=== PATIENT | female | born 1985 | race Caucasian/White ===

== ENCOUNTER → 2021-01-12 09:32 | Outpatient (CLI) | payer OTHER, SELFPAY ==
[2021-01-12 10:13] LABS: Add Manual Diff / Slide Review NO; Basophils Absolute Auto 0 /uL (0-100); Basophils Percent Auto 0.6 % (0-2); Eosinophils Absolute Auto 200 /uL (0-450); Eosinophils Percent Auto 2.9 % (2-4); Hemoglobin 14.4 g/dL (12.0-16.0); Lymphocytes Absolute Auto 1300 /uL (1100-4500); Mean Corpuscular HGB Conc 33.4 % (30-36); Mean Corpuscular Hemoglobin 30.8 PG (26-34); Mean Corpuscular Volume 92.2 fL (80-100); Monocytes Absolute Auto 400 /uL (0-900); Monocytes Percent Auto 7.2 % (3-14); Neutrophils Absolute Auto 4100 /uL (1500-7000); Neutrophils Percent Auto 68.3 % (50-75); Platelet Count 230 X10^3/uL (150-400); Red Blood Cell Count 4.67 X10^6/uL (4.0-5.2); Red Cell Distribution Width 13.5 % (11.6-14.8)
[2021-01-12 11:11] LABS: Free T4, Direct Thyroxine 0.74 ng/dL (0.78-2.19)
[2021-01-12 11:25] LABS: Alanine Aminotransferase 14 IU/L (<35); Albumin 4.6 g/dL (3.5-5.0); Albumin Globulin Ratio 1.5 (1.0-2.8); Alkaline Phosphatase 57 U/L (38-126); Aspartate Aminotransferase 24 IU/L (14-36); BUN Creatinine Ratio 23.5 (6-22); Bilirubin Total 0.3 mg/dL (0.2-1.3); Blood Urea Nitrogen 12 mg/dL (7-17); Calcium 9.9 mg/dL (8.4-10.2); Carbon Dioxide 25 mmol/L (22-32); Chloride 104 mmol/L (98-107); Cholesterol 220 mg/dL (140-199); Estimated Glomerular Filt Rate > 60.0 mL/min (>60); Glucose 107 mg/dL (70-100); HDL Cholesterol 98 mg/dL (40-60); HEMOLYSIS < 15 (0-50); LDL Cholesterol Calculated 114 mg/dL (<100); Potassium 4.5 mmol/L (3.4-5.1); Sodium 137 mmol/L (137-145); Thyroid Stimulating Hormone 0.517 uIU/mL (0.47-4.68); Total Protein 7.6 g/dL (6.3-8.2); Triglycerides 39 mg/dL (35-150)
[2021-01-12 12:31] LABS: Folate 10.1 ng/mL (2.76-20.0); Vitamin B12 Reflex MMA if <400 390 pg/mL (239-931)
[2021-01-17 12:12] LABS: Methylmalonic Acid,Serum 159 nmol/L (0-378)
== END ==
PROVIDERS: PCP Nurse Practitioner Family; Referring Provider Nurse Practitioner Family; Visit Provider Nurse Practitioner Family
DX: Z00.00 Encounter for general adult medical examination without abnormal findings (principal); R19.4 Change in bowel habit; R53.83 Other fatigue; R63.4 Abnormal weight loss; Z13.6 Encounter for screening for cardiovascular disorders
CPT/HCPCS: 36415; 80053; 80061; 82607; 82746; 83921; 84439; 84443; 85025

== ENCOUNTER → 2021-01-31 10:53 | Outpatient (CLI) | payer OTHER, SELFPAY ==
[2021-01-31 13:28] LABS: Free T4, Direct Thyroxine 1.03 ng/dL (0.78-2.19)
[2021-01-31 13:41] LABS: Thyroid Stimulating Hormone 0.466 uIU/mL (0.47-4.68)
[2021-02-01 18:29] LABS: Deamidated Gliadin Ab IgA 4 units (0-19); Deamidated Gliadin Ab IgG 2 units (0-19); Immunoglobulin A,Qn 258 mg/dL (87-352); t-Transglutaminase IgA <2 U/mL (0-3)
== END ==
PROVIDERS: PCP Nurse Practitioner Family; Referring Provider Nurse Practitioner Family; Visit Provider Nurse Practitioner Family
DX: R79.89 Other specified abnormal findings of blood chemistry (principal); R19.4 Change in bowel habit; R53.83 Other fatigue; R63.4 Abnormal weight loss
CPT/HCPCS: 36415; 82784; 83516; 84439; 84443

== ENCOUNTER → 2021-02-07 10:56 | Outpatient (CLI) | payer OTHER, SELFPAY | PROVIDERS: PCP Nurse Practitioner Family; Referring Provider Nurse Practitioner Family; Visit Provider Nurse Practitioner Family | DX: R19.4 Change in bowel habit (principal); R63.4 Abnormal weight loss | CPT/HCPCS: 87045; 87177 ==

== ENCOUNTER 2021-02-10 06:33 | Emergency (ER) | payer OTHER, SELFPAY ==
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
[2021-02-10 07:05] VITALS: BP 119/75; PULSE 56; RESP 18; TEMP 36.8; O2SAT 99
[2021-02-10 07:40] VITALS: BP 121/76; PULSE 70; RESP 16; O2SAT 99
[2021-02-10] MEDS: KETOROLAC 30 MG/ML VIAL IM (07:41)
== END 2021-02-10 07:58 | disposition home or self-care (01) ==
PROVIDERS: Emergency Provider Emergency Medicine; PCP Nurse Practitioner Family
DX: M62.830 Muscle spasm of back (principal)
CPT/HCPCS: 71046; 96372; 99283; J1885

== ENCOUNTER → 2021-02-15 09:50 | Outpatient (CLI) | payer OTHER, SELFPAY ==
[2021-02-15 11:06] LABS: COVID19 -Nasal RAPID Negative (Negative)
== END ==
PROVIDERS: PCP Nurse Practitioner Family; Visit Provider Specialist
DX: Z20.822 Contact with and (suspected) exposure to COVID-19 (principal)
CPT/HCPCS: 87635; C9803

== ENCOUNTER 2021-02-16 10:27 | Day surgery (SDC) | payer OTHER, SELFPAY ==
[2021-02-16] VITALS (8 sets, daily range): BP systolic 99–116; BP diastolic 60–81; PULSE 55–75; RESP 12–20; TEMP 36.4–37.2; O2SAT 99–100; BMI 22.3
--- NOTE | 2021-02-16 | PATH_ITS ---
[facility] Accession Number: [id number] . 01 Material submitted: . PART A: cecum - CECUM POLYP PART B: ileum - TERMINAL ILEUM BIOPSY PART C: colon - RANDOM COLON BIOPSIES . 02 Diagnosis: A. Cecum, Polyp, Biopsy: Tubular adenoma. . B. Terminal Ileum Biopsy: Small bowel mucosa with no diagnostic abnormality. Negative for active inflammation, dysplasia and malignancy. . C. Random Colon, Biopsies: Colonic mucosa with no diagnostic abnormality. Negative for active, chronic, and microscopic colitis. Negative for dysplasia and malignancy. . [facility] 02/21/2021 0929 Local . 02 Electronically signed: . Fara Hartley MD, Pathologist NPI- [id number] . 01 Gross description: . Part A: CECUM POLYP: Received in formalin are multiple fragment(s) of chaney, soft tissue measuring 1.2 x 0.3 x 0.1 cm in aggregate submitted entirely in 1 cassette(s) Part B: TERMINAL ILEUM BIOPSY: Received in formalin are 2 fragment(s) of chaney, soft tissue measuring 0.5 x 0.4 x 0.4 cm to 0.4 x 0.2 x 0.2 cm submitted entirely in 1 cassette(s) Part C: RANDOM COLON BIOPSIES: Received in formalin are multiple fragment(s) of chaney, soft tissue measuring 2.2 x 0.6 x 0.2 cm in aggregate submitted entirely in 1 cassette(s) /RENA 02/17/2021 0419 Local . 02 Pathologist provided ICD-10: D12.0 . 02 CPT . 208100, 229416, 342425 Performed at: 01 [facility] [address] [place] [address] [address], [place], [place] [id number] MD Franklyn Coker MD Phone: [phone] Performed at: 02 [facility] [address] [place] [id number] MD Fara Hartley MD Phone: [phone]
[2021-02-16] MEDS: LACTATED RINGERS 1,000 ML 200 ML IV (10:50)
--- NOTE | 2021-02-16 12:24 | PM.PREOP ---
Pre-operative Note COVID-19 COVID-19 status: Negative Result date/Date tested (Pos, Neg/Pending): 02/15/21 Interval Note History & Physical reviewed/Exam performed by Physician: Yes Changes to H&P: No ASA Class (for procedural sedation): I
[2021-02-16] MEDS: MIDAZOLAM 5 MG/5 ML VIAL IV (12:32)
[2021-02-16] MEDS: fentaNYL 250 MCG/5 ML INJ IV (12:32)
--- NOTE | 2021-02-16 12:57 | PM.OP.ENDO ---
Operative Date/Time/Diagnoses Date of procedure: 02/16/21 Time of procedure: 12:57 Pre-op diagnosis: Chronic diarrhea Post-op diagnosis: same (No obvious source seen.) Procedure & Clinicians Study performed: Colonoscopy with cold biopsy. Collection of stool specimen. Same procedure as scheduled: Yes Indications: Try to determine cause of chronic diarrhea Surgeon: Napoleon Randle Procedure Notes SCOAP/Timeout: Performed Procedure in detail: The patient was placed in the left lateral decubitus position and underwent IV sedation directed by the surgeon consisting of fentanyl and Versed. Digital exam was unremarkable except for slight decrease in sphincter tone.. The scope was inserted and advanced through the rectum into the sigmoid, descending, transverse, and ascending colon. No lesions were seen.. The cecum was reached identified by the ileocecal valve and the appendiceal opening. There was a small polyp in the cecum which I removed with cold biopsy forceps. The ileocecal valve was successfully cannulated. The terminal ileum was normal in appearance. Biopsies were taken randomly at the terminal ileum. The scope was gradually brought out. Random colon biopsies were taken. The mucosa of over looked entirely normal. No other Polyps were found. The scope ultimately was retroflexed in the rectum. The appearance was normal. The scope was removed and the patient tolerated the procedure well. The prep was very good. There was very little stool in the colon therefore I submitted specimens for GI panel at for ova and parasite. Scope withdrawal time: 8 minutes Sedation minutes: 20 Findings: polyp (Cecal) Specimen(s): other (Random colon biopsies. Terminal ileum biopsies. Polyp in the cecum.) Impression: Except for the cecal polyp your colon and the end of your small intestine looked entirely normal. I took biopsies to make sure there is nothing present that my I could not see. Post-procedure Plan for aftercare: I will follow-up by phone Disposition: PACU
[2021-02-16 14:42] LABS: Adenovirus F 40/41 Not Detected (Not Detect); Astrovirus Not Detected (Not Detect); Campylobacter Not Detected (Not Detect); Clostridium difficile toxin AB Not Detected (Not Detect); Cryptosporidium Not Detected (Not Detect); Cyclospora cayetanensis Not Detected (Not Detect); Entamoeba histolytica Not Detected (Not Detect); Enteroaggregative E.coli Not Detected (Not Detect); Enteropathogenic E.coli Not Detected (Not Detect); Enterotoxigenic E.coli It/st Not Detected (Not Detect); Giardia lamblia Not Detected (Not Detect); Norovirus GI/GII Not Detected (Not Detect); Plesiomonsa shigelloides Not Detected (Not Detect); Rotavirus A Not Detected (Not Detect); Salmonella Not Detected (Not Detect); Sapovirus Not Detected (Not Detect); Shiga-like toxin-prod E.coli Not Detected (Not Detect); Shigella/Enteroinvasive E.coli Not Detected (Not Detect); Vibrio Not Detected (Not Detect); Vibrio cholerae Not Detected (Not Detect); Yersinia enterocolitica Not Detected (Not Detect)
== END 2021-02-16 13:36 | disposition home or self-care (01) ==
PROVIDERS: PCP Nurse Practitioner Family; Referring Provider Specialist; Visit Provider Specialist
PROC: 0DJD8ZZ Inspection of Lower Intestinal Tract, Via Natural or Artificial Opening Endoscopic (ICD-10-PCS; CPT 45378; principal; 2021-02-16 11:30)
DX: K52.9 Noninfective gastroenteritis and colitis, unspecified (principal); D12.0 Benign neoplasm of cecum
CPT/HCPCS: 45380; 87177; 87507; 99152; J2250; J3010

== ENCOUNTER 2025-03-04 16:35 | Observation (INO) | payer OTHER, SELFPAY ==
[2025-03-04 17:09] VITALS: BP 161/73; PULSE 58; RESP 20; TEMP 36.4; O2SAT 100; BMI 23.8
[2025-03-04 17:44] LABS: Add Manual Diff / Slide Review NO; Hematocrit 43.3 % (36-46); Hemoglobin 14.9 g/dL (12.0-16.0); Lymphocytes Absolute Auto 700 /uL (1100-4500); Mean Corpuscular HGB Conc 34.4 % (30-36); Mean Corpuscular Hemoglobin 31.1 PG (26-34); Mean Corpuscular Volume 90.4 fL (80-100); Platelet Count 239 X10^3/uL (150-400)
--- NOTE | 2025-03-04 17:48 | DI.US.S_ITS ---
PROCEDURE: US ABDOMEN LIMITED INDICATIONS: Abdominal pain TECHNIQUE: Real-time focused scanning was performed of the abdomen, with image documentation. COMPARISON: None. FINDINGS: The liver is normal in size and demonstrates no suspicious lesions. Trace sludge can be seen within the gallbladder. No shadowing stones are seen. Along the posterior wall of the gallbladder, there is a polyp versus nonmobile sludge seen that measures up to 5 mm. No abnormal vascularity can be seen within this focus. The gallbladder wall is not thickened, measuring 3 mm or less. No specific pericholecystic fluid is seen. The sonographic Carreon sign is positive. There is no biliary dilatation, the common bile duct measures 6 mm. No significant pancreatic abnormality is seen on these images. IMPRESSION: Trace sludge seen within the gallbladder. There is an additional a gallbladder wall polyp versus nonmobile sludge ball measuring 5 mm. The sonographic Carreon sign is positive. No additional ultrasound findings of cholecystitis can be seen. No biliary ductal dilatation. Dictated by: Everardo South M.D. on 03/04/2025 at 17:28 Approved by: Everardo South M.D. on 03/04/2025 at 17:29
[2025-03-04 18:01] LABS: Alanine Aminotransferase 20 IU/L (<35); Albumin 5.0 g/dL (3.5-5.0); Albumin Globulin Ratio 1.5 (1.0-2.8); Alkaline Phosphatase 72 U/L (38-126); Blood Urea Nitrogen 9 mg/dL (7-17); Calcium 9.2 mg/dL (8.4-10.2); Carbon Dioxide 19 mmol/L (22-32); Chloride 103 mmol/L (98-107); Estimated Glomerular Filt Rate > 60 mL/min (>60); Globulin 3.3 g/dL (1.7-4.1); Glucose 102 mg/dL (70-99); HEMOLYSIS 23 (0-50); Lipase 100 U/L (23-300); Potassium 3.3 mmol/L (3.4-5.1); Sodium 135 mmol/L (137-145); Total Protein 8.3 g/dL (6.3-8.2)
--- NOTE | 2025-03-04 21:44 | ED_ITS ---
HPI - Abdominal Pain General Chief Complaint: Abdominal Pain Stated Complaint: Gall Bladder Attack x4days, Has gallstones Time Seen by Provider: 03/04/25 17:48 Source: patient and family Mode of arrival: Wheelchair History of Present Illness HPI narrative: 40-year-old female presents with gallbladder attack after being seen in the ER in [facility] yesterday while camping for which she had a CAT scan done showing gallstones but today continues to have right upper quadrant pain radiating to the back along with multiple bouts of nausea and vomiting unable to hold anything down. Other than what is stated 14 point review of system is negative Related Data Previous Rx's ?Medication ?Instructions ?Recorded cyclobenzaprine 5 mg tablet 5 mg PO TID PRN muscle spa sm #10 02/10/21 tabs Allergies Allergy/AdvReac Type Severity Reaction Status Date / Time No Known Drug Allergies Allergy Verified 03/04/25 17:10 Review of Systems Review of Systems ROS Unobtainable: All systems reviewed & are unremarkable except as noted in HPI and below Patient History Medical History Bowel habit changes (09/2020) Breast pain Encounter for routine gynecological examination (01/31/21) Encounter for wellness examination in adult (01/31/21) Fatigue (11/2020) Weight loss (09/2020) Social History household members: spouse Tobacco: How many years used: 20 quit status: considering quitting second hand exposure: Yes alcohol intake: current substance use type: does not use Smoking Status: Current every day smoker alcohol intake frequency: a few times a month Exam Narrative Exam Narrative: GENERAL: [40] year old patient appears stated age. Well-developed patient, in mild distress. HEAD: Atraumatic. Normocephalic. EYES: Pupils equal round and reactive. Extraocular motions intact. No scleral icterus. No injection or drainage. ENT: Nose without bleeding, purulent drainage. Throat without erythema, tonsillar hypertrophy or exudate. Airway patent. NECK: Trachea midline. Non tender CARDIOVASCULAR: Regular rate and rhythm without murmurs, gallops, or rubs. RESPIRATORY: Clear to auscultation. Breath sounds equal bilaterally. No wheezes, rales, or rhonchi. GASTROINTESTINAL: Abdomen soft, RUQ TTP but no r/r/g, nondistended. EXTREMITIES: No edema or joint tenderness. BACK: Nontender without deformity or crepitance. No flank tenderness. NEURO: AOx3. SKIN: No rash or erythema of visible areas Initial Vital Signs Initial Vital Signs: Vital Signs Temperature 97.5 F L 03/04/25 17:09 Pulse Rate 58 L 03/04/25 17:09 Respiratory Rate 20 03/04/25 17:09 Blood Pressure 161/73 H 03/04/25 17:09 Pulse Oximetry 100 03/04/25 17:09 Oxygen Delivery Method Room Air 03/04/25 17:09 Course Orders Ordered: ED Orders 03/04/25 17:25 Complete Blood Count AUTO DIFF Stat Comprehensive Metabolic Panel Stat Lipase Stat 03/04/25 17:48 US abdomen limited Stat Ondansetron HCl (Ondansetron 4 Mg/2 Ml Inj) 4 mg IV NOW PRN PRN Reason: Nausea And Vomiting Ondansetron HCl (Ondansetron 4 Mg Odt) 4 mg PO NOW PRN PRN Reason: Nausea And Vomiting Vital Signs Vital signs: Vital Signs - 8 hr 03/04/25 17:09 Temperature 97.5 F L Pulse Rate 58 L Respiratory Rate 20 Blood Pressure 161/73 H Pulse Oximetry 100 Oxygen Delivery Method Room Air MDM - Abdominal Pain Lab Data 03/04/25 17:25 03/04/25 17:25 Labs: Lab Results 03/04/25 Range/Units 17:25 WBC 6.2 (4.5-11.0) X10^3/uL RBC 4.79 (4.0-5.2) X10^6/uL Hgb 14.9 (12.0-16.0) g/dL Hct 43.3 (36-46) % MCV 90.4 (80-100) fL MCH 31.1 (26-34) PG MCHC 34.4 (30-36) % RDW 13.9 (11.6-14.8) % Plt Count 239 (150-400) X10^3/uL Neut % (Auto) 76.2 H (50-75) % Lymph % (Auto) 11.9 L (25-40) % Sumner % (Auto) 7.1 (3-14) % Eos % (Auto) 0.3 L (2-4) % Baso % (Auto) 4.5 H (0-2) % Neut # (Auto) 4700 (0544-0916) /uL Lymph # (Auto) 700 L (0337-5081) /uL Sumner # (Auto) 400 (0-900) /uL Eos # (Auto) 0 (0-450) /uL Baso # (Auto) 300 H (0-100) /uL Sodium 135 L (137-145) mmol/L Potassium 3.3 L (3.4-5.1) mmol/L Chloride 103 (98-107) mmol/L Carbon Dioxide 19 L (22-32) mmol/L BUN 9 (7-17) mg/dL Creatinine 0.59 (0.52-1.04) mg/dL Estimated GFR > 60 (>60) mL/min BUN/Creatinine Ratio 15.3 (6-22) Glucose 102 H (70-99) mg/dL Calcium 9.2 (8.4-10.2) mg/dL Total Bilirubin 1.2 (0.2-1.3) mg/dL AST 42 H (14-36) IU/L ALT 20 (<35) IU/L Alkaline Phosphatase 72 (38-126) U/L Total Protein 8.3 H (6.3-8.2) g/dL Albumin 5.0 (3.5-5.0) g/dL Globulin 3.3 (1.7-4.1) g/dL Albumin/Globulin Ratio 1.5 (1.0-2.8) Lipase 100 (23-300) U/L Imaging Data US - abdomen: Radiologist's Impression: [address] [address] Ultrasound Report Signed Patient: Trini Kim MR#: [id number] : 1985 Acct:[id number] Age/Sex: 40 / F Date of Service: 03/04/25 Loc: ED Accession Number: [id number] Procedure: US abdomen limited Ordering Provider: Ivan Avilez MD PROCEDURE: US ABDOMEN LIMITED INDICATIONS: Abdominal pain TECHNIQUE: Real-time focused scanning was performed of the abdomen, with image documentation. COMPARISON: None. FINDINGS: The liver is normal in size and demonstrates no suspicious lesions. Trace sludge can be seen within the gallbladder. No shadowing stones are seen. Along the posterior wall of the gallbladder, there is a polyp versus nonmobile sludge seen that measures up to 5 mm. No abnormal vascularity can be seen within this focus. The gallbladder wall is not thickened, measuring 3 mm or less. No specific pericholecystic fluid is seen. The sonographic Carreon sign is positive. There is no biliary dilatation, the common bile duct measures 6 mm. No significant pancreatic abnormality is seen on these images. IMPRESSION: Trace sludge seen within the gallbladder. There is an additional a gallbladder wall polyp versus nonmobile sludge ball measuring 5 mm. The sonographic Carreon sign is positive. No additional ultrasound findings of cholecystitis can be seen. No biliary ductal dilatation. MDM Narrative Medical decision making narrative: All lab work, vital signs, nurse triage note, medication list, previous ER visits, and all imaging studies reviewed. Patient given fluids Toradol Zofran here. Okay to have clear liquid per Dr. Talavera and NPO after midnight. Differential diagnosis codes cholecystitis, pancreatitis, choledocholithiasis. Case discussed with Dr. Talavera for admission to his service. Patient not on any anticoagulants at this time. Discharge Plan Departure Patient Disposition: Admitted as Observation Clinical Impression: Acute cholecystitis Admit Date/Time: 03/04/25 21:54 Admit Provider: Ike Talavera
[2025-03-04 22:44] LABS: Culture Indicated Urine Cult Not Indicated
[2025-03-04] MEDS: KETOROLAC 30 MG/ML VIAL 15 MG IV (22:52)
[2025-03-04] MEDS: LACTATED RINGERS 1,000 ML 1000 ML IV (22:58)
[2025-03-04 23:00] VITALS: BP 150/82; PULSE 52; O2SAT 100
--- NOTE | 2025-03-04 23:14 | PC.NURSE ---
pt scheduled to have gall bladder taken out. she felt bad and her doctor couldnt get her into surgery so she came here. has been having nausea, vomiting. Hasn't eaten for two days.
[2025-03-04 23:30] VITALS: PULSE 53; O2SAT 98
[2025-03-04 23:31] VITALS: BP 113/58; PULSE 54; RESP 14; O2SAT 98
[2025-03-05 00:07] VITALS: BP 129/89; PULSE 57; RESP 18; TEMP 36.9; O2SAT 100
[2025-03-05 00:16] VITALS: BMI 23.8
[2025-03-05] MEDS: LACTATED RINGERS 1,000 ML 100 ML IV ×2 (02:32→12:22)
[2025-03-05 10:39] VITALS: BP 130/70; PULSE 57; RESP 16; TEMP 36.7; O2SAT 100
--- NOTE | 2025-03-05 14:55 | P.HP_ITS ---
History of Present Illness History of Present Illness Date Patient Seen: 03/05/25 Time Patient Seen: 01:30 Date of Onset of Symptoms: 03/02/25 Chief complaint: Gall Bladder Attack x4days, Has gallstones nausea Narrative: Patient is a 40-year-old female who was admitted through the emergency room on 03/04/2025 with nausea vomiting diarrhea with abdominal pain which radiated back to the back constant but possibly colicky in nature which started on 03/02/2025 patient states she has has problems with fatty foods she states that she was having pain that was 10 on a scale of 0-10 she states she also was having a temperature of a 104? with some myalgias. Patient was seen at another hospital underwent a CT scan which showed possible small gallstones on CAT scan but no gallbladder wall thickening or pericholecystic fluid. Patient underwent an ultrasound here which showed gallbladder sludge a 5 mm polyp no pericholecystic fluid gallbladder wall was minimal thickening. Patient did have a positive Carreon's sign. Patient is having no abdominal pain at this time. I was asked to see the patient for surgical evaluation. Patient's WBC is 6.2 hemoglobin is 14.9 hematocrit is 43.3 platelets are 293,000 sodium is 135 potassium 3.3 chloride 103 bicarb is 19 BUN 9 creatinine 0.59 total bilirubin is 1.2 AST was 42 ALT is 20 alkaline phosphatase was 70 lipase was 100. Allergies NKDA Meds: Cyclobenzaprine Past medical history: Corrective lenses, 4 para 1 miscarriage 3, history of right thumb fracture. Patient denies any other heart lungs digestive musculoskeletal neurological seizure disorder psychiatric problems risks are infectious diseases HIV or AIDS. Past surgical history: Appendectomy with drainage of abscess Social history: History of tobacco abuse 1/2-1 pack per day times 27 years, 2 beers per week, denies any recreational drug usage. Patient is 5 ft to 130 lb, temperature is 98.4? pulse is 57 respirations 18 BP is 128/89 Head is normocephalic eyes PERRLA EOMI is intact nares are clear septum midline EACs and pinnae unremarkable oropharyngeal cavity is in moderate repair. Heart regular rate and rhythm without murmurs. Lungs are clear to auscultation no rales rhonchi or wheezes noted. Abdomen is soft nondistended with hypoactive bowel sounds. Negative Niles's Cullens dove- Coronado's Carreon's McBurney's no masses or peritoneal signs. No rebound or guarding. Musculoskeletal good muscle tone and strength equal bilaterally no gross deficits are elicited. Impression: Nausea vomiting diarrhea of 2 days' duration resolved Temperature of a 104 x 2 days resolved Right upper quadrant pain with ultrasound showing gallbladder sludge gallbladder polyp of 5 mm with no gallbladder wall thickening or pericholecystic fluid History of tobacco abuse 1/2-1 pack per day times 27 years Plan: Discussed with patient and the findings the nausea vomiting diarrhea associated with the elevated temperature is atypical for gallbladder disease discussed with patient probably had a viral gastroenteritis which has resolved and she has no right upper quadrant pain at this time. Discussed gallbladder disease with cholecystitis cholelithiasis and need for surgery including procedure risks and complications including cardiopulmonary depression infection bleeding bowel injury bile duct injury patient understands. Discussed the findings with the gallbladder polyp that this should be removed electively as it may cause a risk for gallbladder cancer in her 70s. Patient is comfortable in observing we will go ahead and discharge the patient as she does want to go home we will follow back up with Dr. Talavera in the office next week for scheduling elective gallbladder once her gastroenteritis has resolved. All questions were answered to patient's satisfaction she is having no pain at this time no need for pain medications. Patient she has any further problems or questions return to the emergency room we will re-evaluate but at this point patient is comfortable with watching and going home. All questions were answered to patient and satisfaction. [facility] Medical History Bowel habit changes (09/2020) Breast pain Encounter for routine gynecological examination (01/31/21) Encounter for wellness examination in adult (01/31/21) Fatigue (11/2020) Weight loss (09/2020) Social History household members: spouse and children Tobacco: How many years used: 20 quit status: considering quitting second hand exposure: Yes alcohol intake: current substance use type: does not use Meds Home Medications and Allergies Home Medications ?Medication ?Instructions ?Recorded ?Confirmed ?Type cyclobenzaprine 5 mg tablet 5 mg PO TID PRN muscle spa sm #10 02/10/21 03/07/21 Rx tabs Allergies Allergy/AdvReac Type Severity Reaction Status Date / Time No Known Drug Allergies Allergy Verified 03/04/25 17:10 Exam Vital Signs (past 8 hours): - 03/05/25 10:39 Temperature 98.0 F Pulse Rate 57 L Respiratory Rate 16 Blood Pressure 130/70 Pulse Oximetry 100 Oxygen Delivery Method Room Air Objective Labs 03/04/25 17:25 03/04/25 17:25 Labs: Laboratory Results - last 24 hr 03/04/25 03/04/25 17:25 22:24 WBC 6.2 RBC 4.79 Hgb 14.9 Hct 43.3 MCV 90.4 MCH 31.1 MCHC 34.4 RDW 13.9 Plt Count 239 Neut % (Auto) 76.2 H Lymph % (Auto) 11.9 L Kingman % (Auto) 7.1 Eos % (Auto) 0.3 L Baso % (Auto) 4.5 H Neut # (Auto) 4700 Lymph # (Auto) 700 L Kingman # (Auto) 400 Eos # (Auto) 0 Baso # (Auto) 300 H Sodium 135 L Potassium 3.3 L Chloride 103 Carbon Dioxide 19 L BUN 9 Creatinine 0.59 Estimated GFR > 60 BUN/Creatinine Ratio 15.3 Glucose 102 H Calcium 9.2 Total Bilirubin 1.2 AST 42 H ALT 20 Alkaline Phosphatase 72 Total Protein 8.3 H Albumin 5.0 Globulin 3.3 Albumin/Globulin Ratio 1.5 Lipase 100 Urine RBC 1-5/hpf Urine WBC None seen Ur Squamous Epith Cells 1-5 /hpf Urine Bacteria Few (2-10) H Urine Mucus 2+ H Ur Culture Indicated? Cult not indicated Vol Urine Centrifuged 10ml (spun) Assessment & Plan Time-Based Coding :: [TOTAL MINUTES] spent with patient and on the chart (including review of chart, obtaining history, exam, reviewing outside data, placing orders, documenting exam and treatment plan, and counseling patient) on [DATE]. PROFEE Paper Feeder Document charge(s): Yes
--- NOTE | 2025-03-05 15:05 | CM.DANOTE ---
DCP Assessment Note: Pt is a 40yo female, resident of [place], is admitted for gallbladder attack. Pt lives in a house with her spouse and children. Pt's Primary Care Provider is unknown and insurance is [facility]. Reviewed chart and discussed with multidisciplinary team pt's medical status and initial discharge needs. Per surgery consult, no surgery needed at this time and will continue with outpatient follow up. DCP met w/patient at bedside; introduced self and role. Present in room is pt's , Hemal. Patient was found in bed, alert and oriented, cooperative with assessment. Pt confirmed living situation and good support in . Pt expressed preference in discharge home. No need for community referrals at this time. Plan: Anticipating dc home with spouse to transport on 03/05 or when medically cleared. CM team will follow closely for coordination of discharge plans. Coleen Keating [facility] Discharge Planning/Care Management Advanced directive, confirm from FAMILY Start: 03/05/25 00:21 Freq: Q24H Status: Active Protocol: Document 03/05/25 08:00 BT (Rec: 03/05/25 08:08 BT [id number]) Advance Directive, confirm on record Time 08:06 Person contacted Pt Copy received No CM Discharge Assessment Start: 03/05/25 00:16 Freq: Status: Active Protocol: Document 03/05/25 15:04 MW (Rec: 03/05/25 15:05 MW [id number]) Discharge Planning Assessment Assigned Discharge POLO [facility] Room Houseperson DPMELVIN/Assigned Hemal Sorensen, Spouse Designee Name Contact Information [phone] Advance Directives? No Advance Directives No on File Has Patient been No admitted in last 30 days? Prior Living House Arrangements Household Members spouse,children Type of Drives own vehicle transporation used prior to admit Independent with ADL Yes 's Is patient alert and Yes oriented? Caregiver for Yes Another Discharge Plan Home Transportation Spouse Arrangement Referrals Initiated None needed Review Status In Process Please Provide Date 03/05/25 Initial DC Assessment Was Performed Next Review Type Continued Stay Review
== END 2025-03-05 15:45 | disposition home or self-care (01) ==
LOC: ED 17:59 → AC 21:55
PROVIDERS: Emergency Medicine; Admitting Provider Surgery; Emergency Provider Family Medicine; Referring Provider Family Medicine; Visit Provider Surgery
DX: R10.11 Right upper quadrant pain (principal); R11.2 Nausea with vomiting, unspecified; F17.210 Nicotine dependence, cigarettes, uncomplicated; K82.4 Cholesterolosis of gallbladder
CPT/HCPCS: 76705; 80053; 81003; 81015; 81025; 83690; 85025; 96361; 96374; 96375; 99222; 99283; 99284; G0378; J1171; J1885